=== PATIENT | male | born 1970 | race African-American/Black ===

== ENCOUNTER 2017-03-29 01:44 | Emergency (ER) | payer OTHER ==
--- NOTE | ~2017-03-29 | CR2 ---
[facility] A Service of [facility] & [facility] RADIOLOGY TEXT RESULTS PATIENT: CHELLE ROGERS JR LOCATION: [facility] : 70 UNIT #: [id number] AGE: [address]: David Adames SEX: M ORDER DR: [id number] [facility] [address] [place], [place] [address] [id number] E MR#: [id number] Acc #: [id number] NAME: CHELLE ROGERS JR : 1970 SEX: M STUDY DATE/TIME: 03/29/2017 2:19 UNIT: [facility] ROOM: STUDY DESCRIPTION: CR Abdomen Acute Series Attending Physician: David Adames P.A.-C. Ordering Physician: David Adames P.A.-C. [facility] REPORT This report is preliminary unless electronic signature is present EXAM Acute abdomen series INDICATION Left-sided abdominal pain, bloating for 3 days. FINDINGS A PA view of the chest and flat and upright view of the abdomen were obtained. The heart size and vascularity are normal and the lungs are clear. The bowel gas pattern is normal. The bones are unremarkable. IMPRESSION Normal acute abdomen series. Dictated by... Homer Dan M.D. THIS IS AN ELECTRONICALLY VERIFIED REPORT Homer Dan M.D. at 03/29/2017 1:31 PM Randal TD: 03/29/2017 08:57 JOB #: [id number] MEDICAL IMAGING REPORT Page 1 of 1 COPY
--- NOTE | ~2017-03-29 | CT2 ---
[facility] A Service of [facility] RADIOLOGY TEXT RESULTS PATIENT: CHELLE ROGERS JR LOCATION: [facility] : 70 UNIT #: [id number] AGE: [address]: David Adames SEX: M ORDER DR: [id number] [place] [id number] [facility] [place], [place] [address] [id number] E MR#: [id number] Acc #: [id number] NAME: CHELLE ROGERS JR : 1970 SEX: M STUDY DATE/TIME: 03/29/2017 4:11 UNIT: [facility] ROOM: STUDY DESCRIPTION: CT Abd and Pelv W Cont Attending Physician: David Adames P.A.-C. Ordering Physician: David Adames P.A.-C. Primary Care Physician: [facility] MEDICAL IMAGING REPORT This report is preliminary unless electronic signature is present EXAM CT abdomen and pelvis with contrast INDICATION Abdominal pain, left lower quadrant pain for 2 days. TECHNIQUE The patient was given 100 mL of Isovue 370 and axial 5 mm images were obtained through the abdomen and pelvis. There is no comparison. This CT examination was performed with one or more of the following radiation dose reduction techniques: automatic exposure control, adjustment of mA and/or kV according to patient size, and iterative reconstruction. FINDINGS The lung bases are clear. Sagittal and coronal reconstructions were generated. The liver, spleen, gallbladder, adrenal glands and kidneys are normal. I believe there is some minimal inflammatory change in the fat surrounding the pancreas. The pancreas itself appears normal except for some calcifications in the uncinate process region. The aorta is normal in size and there is no adenopathy. The bowel is normal. The bladder and prostate gland are normal. The bones are unremarkable. IMPRESSION 1. I believe there is some mild inflammatory change around the pancreas and there seem to be some calcifications in the uncinate process suggesting prior pancreatitis. 2. Otherwise, the study is normal. Dictated by... Homer Dan M.D. THIS IS AN ELECTRONICALLY VERIFIED REPORT [facility] A Service of [facility] & [facility] RADIOLOGY TEXT RESULTS PATIENT: CHELLE ROGERS JR LOCATION: [facility] : 70 UNIT #: [id number] AGE: [address]: David Adames PAC SEX: M ORDER DR: Homer Dan M.D. at 03/29/2017 1:32 PM PABLO/lyric TD: 03/29/2017 09:28 JOB #: [id number] MEDICAL IMAGING REPORT Page 1 of 1 COPY
[2017-03-29 02:36] LABS: BASOPHIL% 0.5 % (0-2.5); DIFF IND NO; EOSINOPHIL# 0.1 X10e3 (0-0.7); EOSINOPHIL% 0.9 % (0.0-7.0); HEMATOCRIT 46.1 % (38.0-50.0); HEMOGLOBIN 15.7 gm/dL (13.0-16.0); LYMPHOCYTE# 2.3 X10e3 (1.0-3.5); LYMPHOCYTE% 27.3 % (17.0-45.0); MEAN CELL VOLUME 87.9 FL (83-96); MEAN CORPUSCULAR HEMOGLOBIN 29.9 PG (28-34); MEAN CORPUSCULAR HGB CONC 34.1 g/dL (30-36); MEAN PLATELET VOLUME 8.4 FL (6.5-11.5); MONOCYTE# 0.5 X10e3 (0-1.0); NEUTROPHIL# 5.6 X10e3 (1.5-7.1); NEUTROPHIL% 65.3 % (40-75); PLATELET COUNT 220 X10e3 (140-420); RED BLOOD COUNT 5.24 X10e (3.90-5.60); WHITE BLOOD COUNT 8.5 X10e3 (4.0-10.5)
[2017-03-29 02:55] LABS: URINE SOURCE CLEAN CATCH
[2017-03-29 02:58] LABS: URINE APPEARANCE CLOUDY; URINE BILIRUBIN NEG (NEG); URINE BLOOD 1+ (NEG); URINE COLOR YELLOW; URINE GLUCOSE >1000 MG/DL (NEG); URINE KETONE 2+ (NEG); URINE LEUKOCYTE ESTERASE NEG (NEG); URINE NITRATE NEG (NEG); URINE PROTEIN 2+ (NEG); URINE SPECIFIC GRAVITY 1.033 (1.003-1.035)
[2017-03-29 03:00] LABS: ALBUMIN SERUM 4.2 g/dL (3.5-5.0); BILIRUBIN, DIRECT 0.1 mg/dL (0.0-0.2); BILIRUBIN,INDIRECT 0.6 mg/dL (0.0-0.9); BILIRUBIN,TOTAL 0.7 mg/dL (0.2-2.0); CALCIUM SERUM 8.9 mg/dL (8.4-10.2); CREATININE SERUM 0.5 mg/dL (0.6-1.4); GLOM FILT RATE Estimated 149.6 mL/min (>60); POTASSIUM 3.4 mmol/L (3.5-5.1); PROTEIN TOTAL SERUM 8.1 g/dL (6.0-8.3)
[2017-03-29 03:01] LABS: CULTURE INDICATED? NO; URINE BACTERIA AUWI NEG (NEGATIVE); URINE SQUAMOUS EPITHELIAL CELL NONE SEEN /[HPF]; UWBCS1 AUWI 0-2 (0-5)
== END 2017-03-29 05:11 | disposition home or self-care (01) ==
LOC: CED 01:44
PROVIDERS: Physician Assistant
DX: R10.84 Generalized abdominal pain (principal); R11.2 Nausea with vomiting, unspecified; E11.9 Type 2 diabetes mellitus without complications; F17.210 Nicotine dependence, cigarettes, uncomplicated; Z79.899 Other long term (current) drug therapy; Z88.0 Allergy status to penicillin
CPT/HCPCS: 36415; 74022; 74177; 80048; 80076; 81003; 82947; 83690; 85025; 96361; 96374; 96375; 99284; J1885; J2405; Q9967

== ENCOUNTER 2017-05-13 07:22 | Emergency (ER) | payer OTHER ==
[~2017-05-13] VITALS: Ht 175.3 cm; Wt 86.2 kg
--- NOTE | ~2017-05-13 | EKG ---
PATIENT: CHELLE ROGERS UNIT #: [id number] Ventricular Rate: 94 BPM Atrial Rate: 94 BPM P-R Interval: 168 ms QRS Duration: 94 ms Q-T Interval: 376 ms QTC Calculation(Bezet): 470 ms P Bruning: 51 degrees Calculated R Bruning: 108 degrees Calculated T Bruning: -6 degrees Diagnosis Line: Sinus rhythm with Premature atrial complexes Diagnosis Line: Possible Lateral infarct (cited on or before Diagnosis Line: 26-APR-2015) Diagnosis Line: Inferior infarct (cited on or before 26-APR-2015) Diagnosis Line: Abnormal ECG Diagnosis Line: When compared with ECG of 26-APR-2015 18:30, Diagnosis Line: Premature atrial complexes are now Present Diagnosis Line: QRS axis Shifted right Diagnosis Line: Confirmed by NASEEM DAMON, JOHN ([id number]) on 05/13/2017 Diagnosis Line: 7:56:20 PM INTERPRETING MD: NASEEM DAMON
--- NOTE | ~2017-05-13 | CR58 ---
[facility] A Service of [facility] & [facility] RADIOLOGY TEXT RESULTS PATIENT: CHELLE ROGERS JR LOCATION: [facility] : 70 UNIT #: [id number] AGE: [address]: Lucero Nash SEX: M ORDER DR: [id number] [facility] [address] [place], [place] [address] [id number] E MR#: [id number] Acc #: [id number] NAME: CHELLE ROGERS JR : 1970 SEX: M STUDY DATE/TIME: 05/13/2017 8:48 UNIT: [facility] ROOM: STUDY DESCRIPTION: CR Cervical Spine 2 or 3 Views Attending Physician: Lucero Nash Pa-C Ordering Physician: Lucero Nash Pa-C Primary Care Physician: [facility], [facility]. MEDICAL IMAGING REPORT This report is preliminary unless electronic signature is present EXAM Cervical spine series 4 views, date of study 05/13/2017. CLINICAL HISTORY Left side neck pain, numbness and tingling paresthesias for 2 days. No known injury. FINDINGS Alignment is normal. There is no fracture, prevertebral swelling or acute abnormality. Incidental note made of atherosclerotic vascular calcifications at the cervical carotid bifurcations bilaterally. Dictated by... Wade Cruz M.D. THIS IS AN ELECTRONICALLY VERIFIED REPORT Wade Cruz M.D. at 05/17/2017 4:09 PM TEV/gz TD: 05/13/2017 13:48 JOB #: [id number] MEDICAL IMAGING REPORT Page 1 of 1 COPY
[2017-05-13 08:22] LABS: BASOPHIL% 0.5 % (0-2.5); EOSINOPHIL# 0.1 X10e3 (0-0.7); EOSINOPHIL% 0.9 % (0.0-7.0); HEMATOCRIT 44.3 % (38.0-50.0); HEMOGLOBIN 15.4 gm/dL (13.0-16.0); LYMPHOCYTE# 2.4 X10e3 (1.0-3.5); LYMPHOCYTE% 28.3 % (17.0-45.0); MEAN CELL VOLUME 87.3 FL (83-96); MEAN CORPUSCULAR HEMOGLOBIN 30.3 PG (28-34); MEAN CORPUSCULAR HGB CONC 34.8 g/dL (30-36); MEAN PLATELET VOLUME 8.5 FL (6.5-11.5); MONOCYTE# 0.4 X10e3 (0-1.0); MONOCYTE% 4.5 % (3.0-12.0); NEUTROPHIL# 5.6 X10e3 (1.5-7.1); NEUTROPHIL% 65.8 % (40-75); PLATELET COUNT 212 X10e3 (140-420); RED BLOOD COUNT 5.08 X10e (3.90-5.60); RED CELL DISTRIBUTION WIDTH 12.8 % (11.0-15.5); WHITE BLOOD COUNT 8.5 X10e3 (4.0-10.5)
[2017-05-13 08:23] LABS: DIFF IND NO
[2017-05-13 08:30] LABS: POC - CKMB 1.3 ng/mL (0.0-7.9); POC - TROPONIN <0.05 ng/mL (<=0.05)
[2017-05-13 08:45] LABS: BILIRUBIN, DIRECT 0.1 mg/dL (0.0-0.2); BILIRUBIN,INDIRECT 0.5 mg/dL (0.0-0.9); BILIRUBIN,TOTAL 0.6 mg/dL (0.2-2.0); BUN/CREATININE RATIO 12.85; CALCIUM SERUM 8.9 mg/dL (8.4-10.2); CREATININE SERUM 0.7 mg/dL (0.6-1.4); GLOM FILT RATE Estimated 130.3 mL/min (>60); POTASSIUM 3.8 mmol/L (3.5-5.1); PROTEIN TOTAL SERUM 7.3 g/dL (6.0-8.3)
[2017-05-13 10:39] LABS: URINE SOURCE CLEAN CATCH
[2017-05-13 10:48] LABS: URINE APPEARANCE CLEAR; URINE BILIRUBIN NEG (NEG); URINE BLOOD NEG (NEG); URINE COLOR YELLOW; URINE GLUCOSE 500 MG/DL (NEG); URINE KETONE NEG (NEG); URINE LEUKOCYTE ESTERASE NEG (NEG); URINE NITRATE NEG (NEG); URINE PROTEIN NEG (NEG); URINE SPECIFIC GRAVITY 1.011 (1.003-1.035); URINE UROBILINOGEN 0.2 MG/DL (NEG)
[2017-05-13 10:56] LABS: CULTURE INDICATED? NO
== END 2017-05-13 11:56 | disposition home or self-care (01) ==
LOC: CED 07:22
PROVIDERS: Physician Assistant Medical
DX: R10.32 Left lower quadrant pain (principal); R20.2 Paresthesia of skin; E11.9 Type 2 diabetes mellitus without complications; I10 Essential (primary) hypertension; F17.210 Nicotine dependence, cigarettes, uncomplicated; Z88.0 Allergy status to penicillin
CPT/HCPCS: 36415; 72040; 80048; 80076; 81003; 82150; 82553; 83690; 84484; 85025; 93005; 96360; 99284